=== PATIENT | female | born 1990 | race Caucasian/White ===

== ENCOUNTER 2020-03-10 21:04 | Emergency (ER) | payer OTHER ==
[2020-03-10] MEDS ORDERED: NORMAL SALINE 1000 ML 1,000 ML IV ONE (21:07)
[2020-03-10 21:18] VITALS: BP 125/64
--- NOTE | 2020-03-10 21:33 | ER Document Report ---
HPI - HPI Time Seen by Provider: 03/10/20 21:07 Pain Level: 2 Context: Patient is a 29-year-old female who presents emergency department with a chief complaint of feeling dehydrated. Patient states that she felt like it was a, "gallbladder attack." She is 32 weeks . Patient states that the other day she felt pain in her right upper back. Denies any low back pain or contractions. 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 She took some Tylenol earlier and had a little relief. Denies any fever, cough, shortness of breath, or any other symptoms. Patient is still feeling the baby move. - ROS Systems Reviewed and Negative: Yes All other systems reviewed and negative - CONSTITUTIONAL Constitutional: DENIES: Fever, Chills - GASTROINTESTINAL Gastrointestinal: DENIES: Abdominal Pain, Nausea, Patient vomiting - URINARY Urinary: DENIES: Dysuria, Urgency - REPRODUCTIVE Reproductive: REPORTS: : - MUSCULOSKELETAL Musculoskeletal: REPORTS: Back Pain - Right upper. DENIES: Extremity pain - DERM Skin Color: Normal Skin Problems: None Past Medical History - General Information source: Patient - Social History Smoking Status: Never Smoker Family History: Reviewed & Not Pertinent Patient has homicidal ideation: No Vertical Provider Document - CONSTITUTIONAL Agree With Documented VS: Yes Exam Limitations: No Limitations General Appearance: No Apparent Distress - HEENT HEENT: Atraumatic, Normocephalic, PERRLA - NECK Neck: Normal Inspection - RESPIRATORY Respiratory: Breath Sounds Normal, No Respiratory Distress - CARDIOVASCULAR Cardiovascular: Regular Rate, Regular Rhythm Pulses: Normal: Radial - GI/ABDOMEN Gastrointestinal: Abdomen Soft, Abdomen Non-Tender Notes: Appears to be 32 weeks gestation. - MUSCULOSKELETAL/EXTREMETIES Musculoskeletal/Extremeties: FROM - NEURO Level of Consciousness: Awake, Alert, Appropriate Motor/Sensory: No Motor Deficit, No Sensory Deficit Course - Re-evaluation Re-evalutation: 03/10/20 21:33 Patient will receive IV fluids and will reassess. 03/10/20 22:34 Patient feels better after receiving IV fluids. Have a low suspicion for any life-threatening etiology at this time. Advised patient take Benadryl to get some sleep. Follow-up precautions were given. Verbal discharge instructions were given to the patient. They verbalized understanding. They are stable for discharge. - Vital Signs Vital signs: Temp Pulse Resp BP Pulse Ox 97.8 F 86 125/64 100 03/10/20 21:15 03/10/20 21:15 03/10/20 21:15 03/10/20 21:15 Discharge - Discharge Clinical Impression: Dehydration Condition: Stable Disposition: HOME, SELF-CARE Additional Instructions: You were seen today in the emergency department for feeling dehydrated. Please make sure you rest. Drink plenty of water. You at home, I recommend taking Benadryl see get good sleep. Forms: Return to Work
== END 2020-03-10 22:02 | disposition home or self-care (01) ==
LOC: ER 21:04
DX: O26.93 Pregnancy related conditions, unspecified, third trimester (principal); E86.0 Dehydration; Z3A.32 32 weeks gestation of pregnancy
CPT/HCPCS: 99284; 96360; J7030

== ENCOUNTER 2020-03-26 16:19 | Outpatient (CLI) | payer OTHER ==
[2020-03-26 17:23] LABS: BACTERIA (WET MOUNT) 4+ BACTERIA SEEN; EPITHELIALS (WET MOUNT) 4+ EPITHELIALS SEEN; T.VAGINALIS (WET MOUNT) NO TRICHOMONAS SEEN; WBCS (WET MOUNT) 3+ WBCS SEEN; YEAST (WET MOUNT) YEAST SEEN
[2020-03-26 17:24] LABS: APPEARANCE,URINE SLIGHTLY-CLOUDY; BILIRUBIN,URINE NEGATIVE (NEGATIVE); COLOR,URINE YELLOW; GLUCOSE, URINE NEGATIVE (NEGATIVE); KETONES,URINE NEGATIVE (NEGATIVE); LEUKOCYTE ESTERASE,URINE TRACE (NEGATIVE); NITRITE,URINE NEGATIVE (NEGATIVE); PROTEIN,URINE NEGATIVE (NEGATIVE); URINE SPECIFIC GRAVITY 1.019; UROBILINOGEN,URINE NEGATIVE mg/dL (<2.0)
[2020-03-26] MEDS ORDERED: FLUCONAZOLE 100 MG TABLET PO ONE (17:31)
[2020-03-26] MEDS ORDERED: FLUCONAZOLE 100 MG TABLET ONE (17:34)
[2020-03-26 17:41] LABS: URINE AMPHETAMINES SCREEN NEGATIVE; URINE BARBITURATES SCREEN NEGATIVE; URINE BENZODIAZEPINES SCREEN NEGATIVE; URINE COCAINE SCREEN NEGATIVE; URINE MARIJUANA (THC) SCREEN NEGATIVE; URINE METHADONE SCREEN NEGATIVE; URINE PHENCYCLIDINE SCREEN NEGATIVE
[2020-03-26 19:03] LABS: CHLAM PCR NOT DETECTED (NOT DETECT)
--- NOTE | 2020-03-26 19:09 | Non Stress Test Report ---
Non Stress Test Datetime Report Generated by CPN: 03/26/2020 19:08 DEMOGRAPHIC EGA NST: 33.6 INDICATION Indication for Study (NST) Other: IUP at 33.6 VITAL SIGNS Temperature - NST: 98.4 Pulse - NST: 96 RESP - NST: 18 NBPSYS NST: 124 NBPDIA NST: 63 MONITORING Monitor Explained: Monitor Explained; Test Explained; Patient Verbalized Understanding Time on Monitor: 03/26/2020 16:33 Time off Monitor: 03/26/2020 17:22 NST Duration: 49 NST INTERVENTIONS NST Interventions: PO Hydration Physician Notified NST: Dr. Ambrose BABY A: [id number] BABY A Movement : Present Contraction Frequency : Irreg FHR Baseline : 135 Accelerations : 15X15 Decelerations : None Variability : Moderate 6-25bpm NST Review: Meets Criteria for Reactive NST NST Review and Verified By : BREANN Chen Results: Reactive NST REPORT Report Trigger: Send Report
== END 2020-03-26 19:27 | disposition home or self-care (01) ==
LOC: LC 16:19
PROVIDERS: ATTEND Student in an Organized Health Care Education/Training Program
DX: O60.03 Preterm labor without delivery, third trimester (principal); Z3A.33 33 weeks gestation of pregnancy
CPT/HCPCS: 59025; 80307; 81001; 87077; 87081; 87210; 87491; 87591

== ENCOUNTER 2020-04-17 16:02 | Outpatient (CLI) | payer OTHER ==
[2020-04-17 16:40] LABS: APPEARANCE,URINE CLOUDY; BILIRUBIN,URINE NEGATIVE (NEGATIVE); COLOR,URINE YELLOW; GLUCOSE, URINE NEGATIVE (NEGATIVE); KETONES,URINE NEGATIVE (NEGATIVE); LEUKOCYTE ESTERASE,URINE LARGE (NEGATIVE); NITRITE,URINE NEGATIVE (NEGATIVE); PROTEIN,URINE 30 mg/dL (NEGATIVE); URINE SPECIFIC GRAVITY 1.024
[2020-04-17 16:56] LABS: URINE AMPHETAMINES SCREEN NEGATIVE; URINE BARBITURATES SCREEN NEGATIVE; URINE BENZODIAZEPINES SCREEN NEGATIVE; URINE COCAINE SCREEN NEGATIVE; URINE MARIJUANA (THC) SCREEN NEGATIVE; URINE METHADONE SCREEN NEGATIVE; URINE PHENCYCLIDINE SCREEN NEGATIVE
== END 2020-04-17 16:46 | disposition home or self-care (01) ==
LOC: LC 16:02
PROVIDERS: ATTEND Obstetrics & Gynecology
DX: O47.03 False labor before 37 completed weeks of gestation, third trimester (principal); Z3A.36 36 weeks gestation of pregnancy
CPT/HCPCS: 59025; 80307; 81005

== ENCOUNTER 2020-05-13 18:04 | Inpatient (IN) | payer OTHER ==
[2020-05-13] MEDS ORDERED: RINGERS SOLUTION,LACTATED 1,000 ML IV PRN (18:26)
[2020-05-13] MEDS ORDERED: RINGERS SOLUTION,LACTATED 1,000 ML IV ONE (18:26)
[2020-05-13] MEDS ORDERED: DINOPROSTONE 10 MG VAGINAL INSERT.SR PV PRN (18:26)
[2020-05-13] MEDS ORDERED: DINOPROSTONE 10 MG VAGINAL INSERT.SR ONE (19:05)
[2020-05-13 19:11] LABS: APPEARANCE,URINE SLIGHTLY-CLOUDY; BILIRUBIN,URINE NEGATIVE (NEGATIVE); COLOR,URINE YELLOW; GLUCOSE, URINE NEGATIVE (NEGATIVE); KETONES,URINE NEGATIVE (NEGATIVE); LEUKOCYTE ESTERASE,URINE MODERATE (NEGATIVE); NITRITE,URINE NEGATIVE (NEGATIVE); PROTEIN,URINE NEGATIVE (NEGATIVE); URINE SPECIFIC GRAVITY 1.024; UROBILINOGEN,URINE NEGATIVE mg/dL (<2.0)
[2020-05-13] MEDS ORDERED: PENICILLIN G POTASSIUM 5,000,000 UNIT in DEXTROSE 5%-WATER 100 ML IV ONE (19:30)
[2020-05-13 19:31] LABS: ABSOLUTE BASOPHILS # (AUTO) 0.1 10^3/uL (0.0-0.2); ABSOLUTE LYMPHOCYTES (AUTO) 1.8 10^3/uL (0.5-4.7); ABSOLUTE MONOCYTES (AUTO) 0.6 10^3/uL (0.1-1.4); ABSOLUTE NEUT (AUTO) 5.6 10^3/uL (1.7-8.2); BASOPHILS % (AUTO) 1.1 % (0-2); EOSINOPHILS % (AUTO) 0.4 % (0-6); HEMATOCRIT 33.9 % (36.0-47.0); HEMOGLOBIN 11.3 g/dL (12.0-15.5); LYMPHOCYTES % (AUTO) 22.2 % (13-45); MEAN CORPUSCULAR HEMOGLOBIN 27.5 pg (27.0-33.4); MEAN CORPUSCULAR HGB CONC 33.4 g/dL (32.0-36.0); MEAN CORPUSCULAR VOLUME 82 fl (80-97); MONOCYTES % (AUTO) 7.8 % (3-13); PLATELET COUNT 129 10^3/uL (150-450); RED BLOOD COUNT 4.12 10^6/uL (3.72-5.28); RED CELL DISTRIBUTION WIDTH 14.7 % (11.5-14.0); SEGMENTED NEUTROPHILS % (AUTO) 68.5 % (42-78); TOTAL CELLS COUNTED % (AUTO) 100 %; WHITE BLOOD COUNT 8.1 10^3/uL (4.0-10.5)
[2020-05-13 19:37] LABS: URINE AMPHETAMINES SCREEN NEGATIVE; URINE BARBITURATES SCREEN NEGATIVE; URINE BENZODIAZEPINES SCREEN NEGATIVE; URINE COCAINE SCREEN NEGATIVE; URINE MARIJUANA (THC) SCREEN NEGATIVE; URINE METHADONE SCREEN NEGATIVE; URINE PHENCYCLIDINE SCREEN NEGATIVE
--- NOTE | 2020-05-13 20:45 | Admission Physical ---
Datetime Report Generated by CPN: 05/13/2020 20:45 CURRENT ADMISSION Chief Complaint: Scheduled Induction of Labor Indication for Induction: Post Dates Admit Impression : Postterm, Intrauterine Admit Plan: Admit to Unit ALLERGIES Medication Allergies: No Medication Allergies: No Known Allergies (05/13/2020) Latex: No Latex Allergies OBSTETRICAL HISTORY EDC: 05/08/2020 00:00 : 4 Para: 2 Term: 2 SAB: 1 Livin SEE RECORDS Alcohol: No Marijuana : No Cocaine: No Other Illicit Drugs: No Cigarettes: Never Smoker. [id number] PHYSICAL EXAM General: Normal HEENT: Normal Neurologic: Normal Thyroid: Normal Heart: Normal Lungs: Normal Breast: Deferred Back: Normal Abdomen: Normal Genitourinary Exam: Normal Extremities: Normal DTRs: Normal Pelvic Type: Adequate Vital Signs: Reviewed VAGINAL EXAM Dilatation: 1 Effacement: 50 Station: -2 MEMBRANES Membranes: Intact FETUS A EGA: 40.5 Monitoring: External US FHR- Baseline: 120 Variability: Moderate 6-25bpm Decelerations: None FHR Category: Category I Presentation: Vertex Admit Comment: admit for induction PLANS FOR LABOR AND DELIVERY Labor and Delivery: None Other Pain Management Plans: open to pain management options as needed Feeding Preference: Breast Circumcision: N/A INFORMED CONSENT Signature: with User ID: [email or web address]
[2020-05-14] MEDS ORDERED: ZOLPIDEM TARTRATE 5 MG TABLET ONE (00:05)
[2020-05-14] MEDS ORDERED: ZOLPIDEM TARTRATE 5 MG TABLET PO ONE (00:30)
[2020-05-14] MEDS: PENICILLIN G POTASSIUM 2,500,000 UNIT in DEXTROSE 5%-WATER 50 ML IV SCH (08:14)
[2020-05-14] MEDS ORDERED: LIDOCAINE 1% INJ-PF (10 MG/ML) 30 ML SDV ONE (08:19)
[2020-05-14] MEDS ORDERED: OXYTOCIN/0.9 % SODIUM CHLORIDE 30 UNIT/500 ML RTUINJ ONE (08:19)
[2020-05-14] MEDS ORDERED: OXYTOCIN 10 UNIT/ML VIAL ONE (08:19)
[2020-05-14] MEDS ORDERED: MISOPROSTOL 0.2 MG TABLET ONE (08:19)
[2020-05-14] MEDS ORDERED: PENICILLIN G-K 5 MILLION UNIT VIAL ONE (08:32)
[2020-05-14] MEDS ORDERED: OXYTOCIN/0.9 % SODIUM CHLORIDE 30 UNIT/500 ML RTUINJ IV PRN ×2 (08:34→13:40)
[2020-05-14] MEDS ORDERED: PENICILLIN G POTASSIUM 5,000,000 UNIT in DEXTROSE 5%-WATER 100 ML IV ONE (08:45)
[2020-05-14] MEDS ORDERED: NALBUPHINE HCL INJ 10 MG/1 ML AMPULE ONE ×2 (10:44→12:28)
[2020-05-14] MEDS ORDERED: PROMETHAZINE HCL INJ 25 MG/1 ML VIAL ONE ×2 (10:44→12:28)
[2020-05-14] MEDS ORDERED: PROMETHAZINE HCL INJ 25 MG/1 ML VIAL IV ONE ×2 (12:27→14:22)
[2020-05-14] MEDS ORDERED: NALBUPHINE HCL INJ 10 MG/1 ML AMPULE INJ ONE ×2 (12:27→12:28)
[2020-05-14] MEDS ORDERED: PENICILLIN G POTASSIUM 2,500,000 UNIT in DEXTROSE 5%-WATER 50 ML IV SCH (12:30)
[2020-05-14] MEDS ORDERED: ACETAMINOPHEN 325 MG TABLET PO PRN (13:40)
[2020-05-14] MEDS ORDERED: MAGNESIUM HYDROXIDE SUSP 30 ML UDCUP PO PRN (13:40)
[2020-05-14] MEDS ORDERED: DIPH/PERTUSS(ACELL)/TETANUS VAC/PF 0.5 ML SYR (>=10YO) IM PRN (13:40)
[2020-05-14] MEDS ORDERED: MEASLES,MUMPS&RUBELLA VACC/PF 0.5 ML VIAL SUBCUT PRN (13:40)
[2020-05-14] MEDS ORDERED: DIBUCAINE 1% OINTMENT 28 GM TP PRN (13:40)
[2020-05-14] MEDS ORDERED: BENZOCAINE/MENTHOL AEROSOL SPRAY 56 ML TOP PRN (13:40)
[2020-05-14] MEDS ORDERED: PSEUDOEPHEDRINE HCL 30 MG TABLET PO PRN (13:40)
[2020-05-14] MEDS ORDERED: FAMOTIDINE 20 MG TABLET PO PRN (13:40)
[2020-05-14] MEDS ORDERED: MAG HYDROX/AL HYDROX/SIMETH SUSP 30 ML UDCUP PO PRN (13:40)
[2020-05-14] MEDS ORDERED: GLYCERIN/WITCH HAZEL LEAF 1 EACH MED..WIPE TP PRN (13:40)
[2020-05-14] MEDS ORDERED: VARICELLA VACC/PF (1350 UNIT/0.5 ML) 0.5 ML VIAL SUBCUT PRN (13:40)
[2020-05-14] MEDS ORDERED: ACETAMINOPHEN WITH CODEINE #3 TABLET PO PRN ×2 (13:40)
[2020-05-14] MEDS ORDERED: ZOLPIDEM TARTRATE 5 MG TABLET PO PRN (13:40)
[2020-05-14] MEDS ORDERED: DIPHENHYDRAMINE HCL 25 MG CAPSULE PO PRN (13:40)
[2020-05-14] MEDS ORDERED: PANTOPRAZOLE SODIUM 20 MG TABLET.DR PO PRN (13:42)
[2020-05-14] MEDS ORDERED: IBUPROFEN 800 MG TABLET ONE (14:34)
[2020-05-14] MEDS: IBUPROFEN 800 MG TABLET PO SCH ×2 (14:35→21:09)
--- NOTE | 2020-05-14 16:17 | Birth Certificate Data ---
Cert Data Datetime Report Generated by CPN: 05/14/2020 16:17 CERTIFICATE DATA Delivery Provider: Josephine Claros CNM (03/26/2020 16:26:MAJO Dickson) 47a. Care: Yes (03/26/2020 16:26:Mimi Ennis RN) 47b. Date of First Visit: 10/29/2019 00:00 (03/26/2020 16:26:Mimi Ennis RN) 47c. Date of Last Visit: 05/13/2020 00:00 (03/26/2020 16:26:Hailey Polanco RN) 47d. Number of Visits: 13 (03/26/2020 16:26:Dawn Esteban RN) 48a. Number of Prev Live Births: 2 (03/26/2020 16:26:Hailey Polanco RN) 48b. Now Livin (03/26/2020 16:26:Alicia Adame RN) 48c. Live Births Now : 0 (03/26/2020 16:26:QS system process) 48d. Date of Last Live : 08/27/2015 00:00 (03/26/2020 16:26:Hailey Polanco RN) 48e. Losses: 1 (03/26/2020 16:26:Hailey Polanco RN) 48f. Date of Last Preg Loss: 11/05/2011 00:00 (03/26/2020 16:26:Hailey Polanco RN) RISK FACTORS IN THIS 49a. Diabetes: No (03/26/2020 16:26:Lacy Renteria RN) 49b. Hypertension: No (03/26/2020 16:26:Lacy Renteria RN) 49c. Previous Births: 0 (03/26/2020 16:26:Lacy Renteria RN) 49d. Stillborns: No (03/26/2020 16:26:Lacy Renteria RN) 49d. IUGR: No (03/26/2020 16:26:Lacy Renteria RN) 49e. Infertility Treatment: No (03/26/2020 16:26:Lacy Renteria RN) 49f. Previous Cesareans: 0 (03/26/2020 16:26:Lacy Renteria RN) Mother's Height 50b. Height Inches: 62 (05/14/2020 15:53:QS system process) Mother's Weight 51a. Pre- Weight (lbs): 167 (03/26/2020 16:26:Mimi Ennis RN) 51b. Weight at Delivery (lbs): 200 (05/14/2020 15:53:QS system process) 52. Dt Last Normal Menses Began: 08/02/2019 00:00 (03/26/2020 16:26:Alicia Adame RN) Infections Present/Treated 53a. Gonorrhea: No (03/26/2020 16:26:Lacy Renteria RN) Results this Hospital Visit : Negative (03/26/2020 16:26:Alicia Adame RN) 53b. Syphilis: No (03/26/2020 16:26:Lacy Renteria RN) Results this Hospital Visit: NONREACTIVE (05/13/2020 19:18:QS system process) 53c. Chlamydia: No (03/26/2020 16:26:Lacy Renteria RN) Results this Hospital Visit: Negative (03/26/2020 16:26:Alicia Adame RN) 53d. Hepatitis B: No (03/26/2020 16::Lacy Renteria RN) Results this Hospital Visit: Negative (03/26/2020 16:26:Alicia Adame RN) 53h. Mother Tested for HBsAG: Yes (03/26/2020 16::Mimi Ennis RN) 53i. Date Tested: 10/29/2019 00:00 (03/26/2020 16::Mimi Ennis RN) 53j. Test Result: Negative (03/26/2020 16:26:Alicia Adame RN) Obstetric Procedures 54a, b, c. Obstetric Procedures: Ultrasound; NST (03/26/2020 16:26:Lacy Renteria RN) Cigarette Smoking Cigarette Smoking: Never Smoker. [id number] (03/26/2020 16:26:Hailey Polanco RN) 55a. 3 Months Before Preg - Ci (03/26/2020 16:26:Hailey Polanco RN) 55a. Packs: 0 (03/26/2020 16:26:Hailey Polanco RN) 55b. 1st Trimester of Preg- Ci (03/26/2020 16:26:Hailey Polanco RN) 55b. Packs: 0 (03/26/2020 16:26:Hailey Polanco RN) 55c. 2nd Trimester of Preg- Ci (03/26/2020 16:26:Hailey Polanco RN) 55c. Packs: 0 (03/26/2020 16:26:Hailey Polanco RN) 55d. 3rd Trimester of Preg- Ci (03/26/2020 16:26:Hailey Polanco RN) 55d. Packs: 0 (03/26/2020 16:26:Hailey Polanco RN) Onset of Labor 56a. PROM >12 Hrs: 0.60 (03/26/2020 16:26:QS system process) 56b. Precipitous Labor <3 Hrs: 2 (03/26/2020 16:26:QS system process) 56c. Prolonged Labor > 20 Hrs: 2 (03/26/2020 16:26:QS system process) 57a. Induction of Labor: Induction (03/26/2020 16:26:Dawn Esteban RN) 57a. Induction of Labor: Cervidil (05/13/2020 19:12:Hailey Polanco RN) 57c. Non-Vertex Presentation A: Vertex (03/26/2020 16:26:MAJO Dickson) 57d. Steroids - Lung Mat: None (03/26/2020 16:26:MAJO Dickson) 57d. Steroids - Lung Mat: Not Applicable (03/26/2020 16:26:MAJO Dickson) 57e. Antibiotics During Labor: 05/14/2020 12:40 (03/26/2020 16:26:MAJO Dickson) 57g. Moderate/Heavy Meconium: Clear (05/14/2020 12:43:Dawn Esteban RN) 57h. Intolerance of Labor: N/A (03/26/2020 16:26:MJAO Dickson) : N/A (03/26/2020 16:26:MAJO Dickson) 57i. Epidural/Spinal Anesthesia: IV Sedation (03/26/2020 16:26:MAJO Dickson) Method of Delivery 58a. Forceps - Unsuccessful A: N/A (03/26/2020 16:26:[facility]) 58b. Vacuum - Unsuccessful A: N/A (03/26/2020 16:26:[facility]) 58c. Presentation at 58c. Presentation at - A : Vertex (03/26/2020 16:26:[facility]) 58c. Presentation at - A : N/A (03/26/2020 16:26:Dawn Esteban RN) 58c. Presentation at - A : Cephalic (05/14/2020 10:38:Dawn Esteban RN) Final Route and Method of Del 58d. Baby A Route/Delivery: Vaginal (05/14/2020 13:19:Dawn Esteban RN) 58e. Trial of Labor Attempted: No (03/26/2020 16:26:Dawn Esteban RN) 58e. Trial of Labor Attempted A: N/A (03/26/2020 16:26:Dawn Esteban RN) 58e. Trial of Labor Attempted B: N/A (03/26/2020 16:26:Dawn Vorady, RN) Maternal Morbidity 59b. 3rd or 4th Degree Lacs: None (03/26/2020 16:26:Yaneth Camp, RNC) 59b. 3rd or 4th Degree Lacs: N/A (03/26/2020 16:26:Dawn Esteban, RN) Birthweight Baby A: 3532 (03/26/2020 16:26:Denice Sales, RN) 60a. Pounds : 7 (03/26/2020 16:26:QS system process) 60b. Ounces: 13 (03/26/2020 16:26:QS system process) 61. GA at Delivery Baby A: 40.6 (03/26/2020 16:26:Dawn Esteban RN) : Full Term- 39- 40.6 Weeks (03/26/2020 16:26:QS system process) 62a. 5 Minute Baby A: 9 (03/26/2020 16:26:QS system process)
--- NOTE | 2020-05-14 16:17 | Delivery Summary ---
Del Sum A-C Datetime Report Generated by CPN: 05/14/2020 16:17 DELIVERY PERSONNEL DELIVERY PERSONNEL: [id number] Delivery Doctor:: Josephine Claros CNM Nurse Package Clerk Certified:: Josephine Claros CNM Labor and Delivery Nurse:: Dawn Esteban RNclearance coordinator Nurse:: MAJO Dickson Nursery Nurse:: Amy Izaguirre RN Nursery Nurse:: BREANN Flores Tech/SOFTWARE PUBLISHER: Claritza Rodas, SOLAR PANEL INSTALLER MATERNAL INFORMATION Delivery Anesthesia: None Medications After Delivery: Pitocin Bolus-Please Comment; Pitocin 30 Units in 500ml NS/D5W Delivery QBL: 75 Maternal Complications: None Provider Comments: NATHANIEL VIABLE FEMALE WITH SPONTANEOUS CRY. LOOSE NUCHAL CORD REDUCED AFTER DELIVERY OF HEAD. CORD DOUBLE CLAMPED AND CUT. SPONTANEOUS PLACENTA INTACT WITH 3VC. MOTHER AND INFANT STABLE IN L_D#1. NURSERY RNs PRESENT FOR DELIVERY D/T RECENT ADMINISTRATION OF PAIN MEDICATIONS. LABOR SUMMARY EDC: 05/08/2020 00:00 No. Babies in Womb: 1 Attempted: No Labor Anesthesia: IV Sedation LABOR INFORMATION Reason for Induction: Post Dates Onset of Labor: 05/14/2020 11:00 Complete Dilatation: 05/14/2020 13:09 Cervical Ripening Agents: Cervidil Oxytocin: Induction Group B Beta Strep: Positive Antibiotics # of Doses: 2 Antibiotics Time of Last Dose: 05/14/2020 12:40 Name of Antibiotic Given: PCN Steroids Given: None Reason Steroids Not Administered: Not Applicable MEMBRANES Membranes Rupture Method: Artificial Rupture of Membranes: 05/14/2020 12:43 Length of Rupture (hr): 0.60 Amniotic Fluid Color: Clear Amniotic Fluid Amount: Moderate Amniotic Fluid Odor: Normal STAGES OF LABOR Stage 1 hr: 2 Stage 1 min: 9 Stage 2 hr: 0 Stage 2 min: 10 Stage 3 hr: 0 Stage 3 min: 6 Total Time in Labor hr: 2 Total Time in Labor min: 25 VAGINAL DELIVERY Episiotomy: None Laceration #1: None Laceration Extension #1: N/A Laceration Repair: Not Applicable Sponge Count Correct: N/A Sharps Count Correct: N/A CSECTION DELIVERY Primary Indication: N/A Secondary Indication: N/A CSection Incidence: N/A Labor: N/A Elective: N/A CSection Incision: N/A BABY A INFORMATION Delivery Date/Time: 05/14/2020 13:19 Method of Delivery: Vaginal Nurse Controlled Delivery: No Born in Route : No : N/A Forceps: N/A Vacuum Extraction: N/A Shoulder Dystocia : No PRESENTATION/POSITION BABY A Presentation: Cephalic Cephalic Presentation: Vertex Vertex Position: Right Occipital Anterior Breech Presentation: N/A PLACENTA INFORMATION BABY A Placenta Delivery Time : 05/14/2020 13:25 Placenta Method of Delivery: Spontaneous Placenta Status: Delivered SCORES BABY A Heart Rate 1 min: >100 bpm Resp Effort 1 min: Slow, Irregular Reflex Irritability 1 min: Cough or Sneeze or Pulls Away Muscle Tone 1 min: Active Motion Color 1 min: Blue/Pale Resuscitation Effort 1 min: Tactile Stimulation SCORE 1 MIN: 7 Heart Rate 5 min: >100 bpm Resp Effort 5 min: Good Cry Reflex Irritability 5 min: Cough or Sneeze or Pulls Away Muscle Tone 5 min: Active Motion Color 5 min: Body Chesaning, Extremities Blue Resuscitation Effort 5 min: N/A SCORE 5 MIN: 9 INFORMATION BABY A Gestational Age at Delivery: 40.6 Gestational Status: Full Term- 39- 40.6 Weeks Outcome : Liveborn Condition : Stable Sex: Female IDENTIFICATION BABY A Infant Verification Date/Time: 05/14/2020 13:38 ID Band Number: [id number] Mother's Name Verified: Yes RN Verifying : Yaneth [place] RNC Additional Verifying Personnel: Dawn Esteban RN WEIGHT/LENGTH BABY A Birthweight (gm): 3532 Infant Weight (lb): 7 Infant Weight (oz): 13 Infant Length (in): 20.00 Infant Length (cm): 50.80 CORD INFORMATION BABY A No. Cord Vessels: 3 Nuchal Cord : Around Neck x1, Loose Cord Blood Taken: Yes-For Storage (Mom's Blood type +) Infant Suction: Mouth ASSESSMENT BABY A Complications: None Physical Findings at Delivery: Bruising Physical Findings- Other: facial bruising Respirations: Appears Normal Skin to Skin: Yes [place]/ALS Called : No Care By: C Jewell, RN Transferred To: Remains with Mother BABY B INFORMATION : N/A SIGNATURES Assignment: Korey Crocker MD Signature: with User ID: [email or web address] : with User ID: [email or web address] : I was personally available for consultation and serving as supervising physician for the MLP.
[2020-05-14] MEDS: DOCUSATE SODIUM 100 MG CAPSULE PO SCH (17:33)
[2020-05-14] MEDS: FERROUS SULFATE 325 MG TABLET PO SCH (17:34)
[2020-05-15 05:52] LABS: HEMATOCRIT 31.4 % (36.0-47.0); HEMOGLOBIN 10.5 g/dL (12.0-15.5); MEAN CORPUSCULAR HEMOGLOBIN 27.8 pg (27.0-33.4); MEAN CORPUSCULAR HGB CONC 33.4 g/dL (32.0-36.0); MEAN CORPUSCULAR VOLUME 83 fl (80-97); PLATELET COUNT 120 10^3/uL (150-450); RED BLOOD COUNT 3.78 10^6/uL (3.72-5.28); RED CELL DISTRIBUTION WIDTH 15.1 % (11.5-14.0); WHITE BLOOD COUNT 9.7 10^3/uL (4.0-10.5)
[2020-05-15] MEDS: IBUPROFEN 800 MG TABLET PO SCH ×2 (05:55→16:56)
[2020-05-15 07:42] VITALS: BP 117/66
[2020-05-15] MEDS ORDERED: PRENATAL VITAMIN W DHA CAPSULE PO SCH (10:00)
[2020-05-15] MEDS ORDERED: SENNOSIDES/DOCUSATE 8.6-50 MG 1 EACH TABLET PO SCH (10:00)
--- NOTE | 2020-05-15 10:38 | PDOC PROGRESS REPORT ---
Subjective-OB Progress Note for:: 05/15/20 Subjective: reports bleeding slowing, pain controlled with current meds. denies needs Physical Exam (OB) Vital Signs: Temp Pulse Resp BP Pulse Ox 98.0 F 87 18 117/66 100 05/15/20 07:30 05/15/20 07:30 05/15/20 07:30 05/15/20 07:30 05/15/20 07:30 Intake & Output 05/14/20 05/15/20 05/16/20 06:59 06:59 06:59 Intake Total 600 Output Total 300 Balance 300 Weight 90.8 kg - Maternal Morbidity 59. Maternal Morbidity (serious complications experinced by the mother associated with labor and delivery: None of the above - Abdomen Description: Soft Hernia Present: No Fundal Description: Firm, Midline Fundal Height: u/3 - u/4 - Abdominal Distension: No distension Tenderness: Nontender - Extremities Lower extremities: Leandro's sign - neg Calf: Normal, Nontender Objective-Diagnostic Laboratory: 05/15/20 04:53 05/15/20 04:53 WBC 9.7 RBC 3.78 Hgb 10.5 L Hct 31.4 L MCV 83 MCH 27.8 MCHC 33.4 RDW 15.1 H Plt Count 120 L Assessment and Plan(PN) - Assessment and Plan (1) Encounter for induction of labor Is this a current diagnosis for this admission?: Yes (2) Normal vaginal delivery Is this a current diagnosis for this admission?: Yes - Time Spent with Patient Time with patient: Less than 15 minutes - Disposition Anticipated Discharge Disposition: Home, Self Care Anticipated Discharge Timeframe: within 24 hours
--- NOTE | 2020-05-15 10:39 | PDOC DISCHARGE SUMMARY ---
Impression - Admit/DC Date/PCP Admission Date/Primary Care Provider: 05/13/20 18:04 Discharge Date: 05/15/20 - Discharge Diagnosis (1) Encounter for induction of labor Is this a current diagnosis for this admission?: Yes (2) Normal vaginal delivery Is this a current diagnosis for this admission?: Yes - Additional Information Discharge Diet: Regular Discharge Activity: Balance Activity w/Rest, Pelvic Rest Home Medications: Vit,Calc76/Iron/Folic [Prenatabs Rx Tablet] 1 tab PO DAILY 03/26/20 Hospital Course 59. Maternal Morbidity (serious complications experinced by the mother associated with labor and delivery: None of the above Results Laboratory Results: WBC 9.7 10^3/uL (4.0-10.5) 05/15/20 04:53 RBC 3.78 10^6/uL (3.72-5.28) 05/15/20 04:53 Hgb 10.5 g/dL (12.0-15.5) L 05/15/20 04:53 Hct 31.4 % (36.0-47.0) L 05/15/20 04:53 MCV 83 fl (80-97) 05/15/20 04:53 MCH 27.8 pg (27.0-33.4) 05/15/20 04:53 MCHC 33.4 g/dL (32.0-36.0) 05/15/20 04:53 RDW 15.1 % (11.5-14.0) H 05/15/20 04:53 Plt Count 120 10^3/uL (150-450) L 05/15/20 04:53 Lymph % (Auto) 22.2 % (13-45) 05/13/20 19:18 [place] % (Auto) 7.8 % (3-13) 05/13/20 19:18 Eos % (Auto) 0.4 % (0-6) 05/13/20 19:18 Baso % (Auto) 1.1 % (0-2) 05/13/20 19:18 Absolute Neuts (auto) 5.6 10^3/uL (1.7-8.2) 05/13/20 19:18 Absolute Lymphs (auto) 1.8 10^3/uL (0.5-4.7) 05/13/20 19:18 Absolute Monos (auto) 0.6 10^3/uL (0.1-1.4) 05/13/20 19:18 Absolute Eos (auto) 0.0 10^3/uL (0.0-0.6) 05/13/20 19:18 Absolute Basos (auto) 0.1 10^3/uL (0.0-0.2) 05/13/20 19:18 Seg Neutrophils % 68.5 % (42-78) 05/13/20 19:18 Urine Color YELLOW 05/13/20 18:12 Urine Appearance SLIGHTLY-CLOUDY 05/13/20 18:12 Urine pH 6.0 (5.0-9.0) 05/13/20 18:12 Ur Specific [place] 1.024 05/13/20 18:12 Urine Protein NEGATIVE mg/dL (NEGATIVE) 05/13/20 18:12 Urine Glucose (UA) NEGATIVE mg/dL (NEGATIVE) 05/13/20 18:12 Urine Ketones NEGATIVE mg/dL (NEGATIVE) 05/13/20 18:12 Urine Blood NEGATIVE (NEGATIVE) 05/13/20 18:12 Urine Nitrite NEGATIVE (NEGATIVE) 05/13/20 18:12 Urine Bilirubin NEGATIVE (NEGATIVE) 05/13/20 18:12 Urine Urobilinogen NEGATIVE mg/dL (<2.0) 05/13/20 18:12 Ur Leukocyte Esterase MODERATE (NEGATIVE) H 05/13/20 18:12 Urine Ascorbic Acid NEGATIVE (NEGATIVE) 05/13/20 18:12 Urine Opiates Screen NEGATIVE 05/13/20 18:12 Urine Methadone Screen NEGATIVE 05/13/20 18:12 Ur Barbiturates Screen NEGATIVE 05/13/20 18:12 Ur Phencyclidine Scrn NEGATIVE 05/13/20 18:12 Ur Amphetamines Screen NEGATIVE 05/13/20 18:12 U Benzodiazepines Scrn NEGATIVE 05/13/20 18:12 Urine Cocaine Screen NEGATIVE 05/13/20 18:12 U Marijuana (THC) Screen NEGATIVE 05/13/20 18:12 RPR NONREACTIVE (NONREACTIVE) 05/13/20 19:18 Blood Type AB POSITIVE 05/13/20 19:18 Antibody Screen NEGATIVE 05/13/20 19:18 Plan Plan of Treatment: follow up in 4 weeks at [facility] for post check
[2020-05-15] MEDS: DOCUSATE SODIUM 100 MG CAPSULE PO SCH ×2 (10:41→17:30)
[2020-05-15] MEDS: FERROUS SULFATE 325 MG TABLET PO SCH ×2 (10:42→17:30)
== END 2020-05-15 18:30 | disposition home or self-care (01) | DRG 807 ==
LOC: LR 18:04 → 2S 05-14 15:40
PROVIDERS: ADMIT Obstetrics & Gynecology; ATTEND Obstetrics & Gynecology
PROC: 10E0XZZ Delivery of Products of Conception, External Approach (ICD-10-PCS; principal; 2020-05-14)
DX: O48.0 Post-term pregnancy (principal); Z37.0 Single live birth; O99.824 Streptococcus B carrier state complicating childbirth; O69.81X0 Labor and delivery complicated by cord around neck, without compression, not applicable or unspecified; Z3A.40 40 weeks gestation of pregnancy
CPT/HCPCS: 36415; 80307; 81005; 85025; 85027; 86592; 86850; 86900; 86901; J2300; J2540; J2550; J2590; J3490; J7060